=== PATIENT | male | born 2000 | race Caucasian/White ===

== ENCOUNTER 2023-01-18 15:07 | Emergency (ER) | payer MEDICAID ==
[2023-01-18] MEDS ORDERED: ACETAMINOPHEN 325MG TABLET PO ONE (17:15)
[2023-01-18] MEDS ORDERED: ACET-2708 MT (17:30)
== END 2023-01-18 17:56 | disposition home or self-care (01) ==
LOC: ER 15:07
DX: R51.9 Headache, unspecified (principal); V43.52XA Car driver injured in collision with other type car in traffic accident, initial encounter; Y93.89 Activity, other specified; Y92.488 Other paved roadways as the place of occurrence of the external cause
CPT/HCPCS: 99282

== ENCOUNTER 2025-04-23 19:18 | Emergency (ER) | payer MEDICAID ==
[~2025-04-23] VITALS: Ht 188 cm; Wt 90.8 kg
[~2025-04-23 19:18] MED LIST: ACET-2708 MT
[2025-04-23 19:19] VITALS: BP 146/66; TEMP 36.6; O2SAT 98
[2025-04-23 19:20] VITALS: PULSE 64; RESP 14; O2SAT 98
== END 2025-04-23 22:15 | disposition left against medical advice (07) ==
LOC: ER 19:18
DX: M54.50 Low back pain, unspecified (principal); Z53.21 Procedure and treatment not carried out due to patient leaving prior to being seen by health care provider